=== PATIENT | male | born 1980 | race Caucasian/White ===

== ENCOUNTER 2020-10-15 10:25 | Emergency (ER) | payer OTHER ==
[~2020-10-15] VITALS: Ht 185.4 cm; Wt 92.7 kg
[2020-10-15] MEDS ORDERED: PRAZ2CAP PO (10:32)
[2020-10-15] MEDS ORDERED: BUSP15TA47 PO (10:32)
[2020-10-15] MEDS ORDERED: TRAZ1TAB10 PO (10:32)
[2020-10-15] MEDS ORDERED: VENL150C43 PO (10:32)
[2020-10-15 11:19] VITALS: BP 162/98
[2020-10-15] MEDS ORDERED: NAPR-837 PO (11:55)
[2020-10-15] MEDS ORDERED: METH-1165 PO (11:55)
== END 2020-10-15 12:06 | disposition home or self-care (01) ==
LOC: M ED 10:25
DX: S39.012A Strain of muscle, fascia and tendon of lower back, initial encounter (principal); X58.XXXA Exposure to other specified factors, initial encounter; Y92.89 Other specified places as the place of occurrence of the external cause; Y93.89 Activity, other specified; Y99.8 Other external cause status; F43.10 Post-traumatic stress disorder, unspecified; F41.9 Anxiety disorder, unspecified; F17.210 Nicotine dependence, cigarettes, uncomplicated; Z79.899 Other long term (current) drug therapy